=== PATIENT | male | born 1960 | race Caucasian/White ===

== ENCOUNTER 2018-10-23 17:33 | Emergency (ER) | payer OTHER ==
[2018-10-23] MEDS ORDERED: HYDROCODONE/APAP 10/325 TAB ONE (18:26)
[2018-10-23] MEDS ORDERED: DIAZEPAM 5 MG TABLET ONE (18:26)
--- NOTE | 2018-10-23 19:19 | RAD REPORT ---
EXAM DESCRIPTION: RAD - Tib Fib Right - 10/23/2018 6:22 pm CLINICAL HISTORY: Trauma, right leg pain COMPARISON: None. FINDINGS: No fracture is identified. There is no dislocation or periosteal reaction noted. No acute or suspicious bony finding. No foreign body or other soft tissue abnormality. IMPRESSION: Negative right tibia & fibula examination.
--- NOTE | 2018-10-23 19:20 | RAD REPORT ---
EXAM DESCRIPTION: US - Extremity Venous Uni Ltd - 10/23/2018 6:56 pm CLINICAL HISTORY: Right leg pain and swelling COMPARISON: None. TECHNIQUE: Real-time sonographic evaluation of the right lower extremity deep venous systems was per formed. FINDINGS: Normal compressibility, flow augmentation, phasic flow and spontaneous flow are identified in the right lower extremity common femoral, superficial femoral, popliteal and posterior tibial vei ns. No intraluminal filling defects seen. IMPRESSION: No DVT in the right lower extremity.
--- NOTE | 2018-10-23 19:59 | ER ---
[facility] Name: Willis Alejandro Age: 58 yrs Sex: Male : 1960 Arrival Date: 10/23/2018 Time: 17:35 Bed 27 Private MD: Diagnosis: Muscle Strain Presentation: 10/23 17:36 Presenting complaint: Patient states: i was pushing a boat and something on my R calf hj popped, happened 30 mins ago, it looks swollen now;. Transition of care: patient was not received from another setting of care. Onset of symptoms was October 23, 2018. Risk Assessment: Do you want to hurt yourself or someone else? Patient reports no desire to harm self or others. Initial Sepsis Screen: Does the patient meet any 2 criteria? No. Patient's initial sepsis screen is negative. Does the patient have a suspected source of infection? No. Patient's initial sepsis screen is negative. Care prior to arrival: None. 17:36 Method Of Arrival: Ambulatory 17:36 Acuity: RAMONA 4 hj Historical: - Allergies: 17:38 No Known Allergies; hj - PMHx: 17:38 Diabetes - NIDDM; Hyperlipidemia; hj - PSHx: 17:38 abdominal; hj - Immunization history:: Flu vaccine status is unknown. - Social history:: Smoking status: unknown. - Ebola Screening: : No symptoms or risks identified at this time. Screenin:01 Abuse screen: Denies threats or abuse. Denies injuries from another. Nutritional mg2 screening: No deficits noted. On. Tuberculosis screening: No symptoms or risk factors identified. Fall Risk Gait- Weak (10 pts.). Assessment: 17:59 General: Appears in no apparent distress. comfortable, Behavior is calm, cooperative. mg2 Pain: Complains of pain in right leg Pain does not radiate. Pain currently is 8 out of 10 on a pain scale. Neuro: Level of Consciousness is awake, alert, obeys commands, Oriented to person, place, time, situation. Cardiovascular: Capillary refill < 3 seconds Patient's skin is warm and dry. Respiratory: Airway is patent Respiratory effort is even, unlabored, Respiratory pattern is regular, symmetrical. GI: No signs and/or symptoms were reported involving the gastrointestinal system. : No signs and/or symptoms were reported regarding the genitourinary system. EENT: No signs and/or symptoms were reported regarding the EENT system. Derm: Skin is intact, is healthy with good turgor, Skin is pink, warm \T\ dry. normal. Musculoskeletal: Circulation, motion, and sensation intact. Capillary refill < 3 seconds, Reports pain in right leg since this afternoon. 20:10 Reassessment: splint checked by TURNER Colón before patient's discharge. mg2 Vital Signs: 17:38 BP 142 / 91; Pulse 66; Resp 18; Temp 97.7(TE); Pulse Ox 98% on R/A; Weight 112.49 kg; hj Height 6 ft. 1 in. (185.42 cm); Pain 8/10; 19:25 BP 119 / 80; Pulse 85; Resp 18; Pulse Ox 100% on R/A; Pain 2/10; mg2 17:38 Body Mass Index 32.72 (112.49 kg, 185.42 cm) ED Course: 17:35 Patient arrived in ED. hj 17:37 Triage completed. hj 17:38 Arm band placed on right wrist. 17:39 Bertrand Fox NP is PHCP. pm1 17:39 Van Castro MD is Attending Physician. pm1 17:39 PHCP role handed off by Bertrand Fox NP [facility] 17:39 Eldon Ball PA is PHCP. [facility] 17:39 Emile Doe, MEDINA is Primary Nurse. mg2 18:02 Patient has correct armband on for positive identification. Pulse ox on. NIBP on. Door mg2 closed. Warm blanket given. Ice pack to injury. 18:02 No provider procedures requiring assistance completed. Patient did not have IV access mg2 during this emergency room visit. 18:19 X-ray completed. Portable x-ray completed in exam room. Patient tolerated procedure ml well. 18:20 Tib Fib Right XRAY In Process Unspecified. EDMS 18:55 Ultrasound completed. Patient tolerated well. sg3 18:55 US Extremity Venous Unilateral Ltd In Process Unspecified. EDMS 19:57 Bharath Gallegos MD is Referral Physician. jmm 19:58 Crutch training done. Orthoglass splint: Posterior short lleg splint applied on right mg2 leg. applied by KELBY Shepard. Administered Medications: 18:16 Drug: Valium 5 mg Route: PO; mg2 19:09 Follow up: Response: No adverse reaction; Marked relief of symptoms mg2 18:16 Drug: [place] 10 mg-325 mg 1 tabs Route: PO; mg2 19:09 Follow up: Response: No adverse reaction; Marked relief of symptoms mg2 Outcome: 19:59 Discharge ordered by MD. wilkerson 20:11 Discharged to home ambulatory, with crutches, with family. mg2 20:11 Condition: good 20:11 Discharge instructions given to patient, family, Instructed on discharge instructions, follow up and referral plans. medication usage, Demonstrated understanding of instructions, follow-up care, medications, crutch walking, splint care, Prescriptions given X 1. 20:11 Patient left the ED. mg2 Signatures: Dispatcher [employer] EDMS Eldon Ball PA PA jmm Lopez, Melissa ml Joaquin, Henry, RN RN hj Bertrand Fox NP [employer] pm1 Kourtney Harvey sg3 Emile Doe RN RN mg2 Corrections: (The following items were deleted from the chart) 17:40 17:38 Pulse 66bpm; Resp 18bpm; Pulse Ox 98% RA; Temp 97.7F Temporal; 112.49 kg; Height hj 6 ft. 1 in.; BMI: 32.7; Pain 8/10; hj
--- NOTE | 2018-10-23 19:59 | EDPHYS ---
Physician Documentation [facility] Name: Willis Alejandro Age: 58 yrs Sex: Male : 1960 Arrival Date: 10/23/2018 Time: 17:35 Bed 27 Private MD: ED Physician Van Castro HPI: 10/23 17:56 This 58 yrs old Male presents to ER via Ambulatory with complaints of Leg jmm Pain. 17:56 The patient presents with an injury, pain. Onset: The symptoms/episode began/occurred jmm acutely. This is a 58 year old male with a history of DM, HLP that presents to the ED with complaints of acute onset of pain to his right calf. Patient states as he was pushing his boat, he felt a pop. Pain is localized to the right medial calf. Patient denies other injury. . Historical: - Allergies: 17:38 No Known Allergies; hj - PMHx: 17:38 Diabetes - NIDDM; Hyperlipidemia; hj - PSHx: 17:38 abdominal; hj - Immunization history:: Flu vaccine status is unknown. - Social history:: Smoking status: unknown. - Ebola Screening: : No symptoms or risks identified at this time. ROS: 17:56 Constitutional: Negative for fever, chills, and weight loss, Cardiovascular: Negative jmm for chest pain, palpitations, and edema, Respiratory: Negative for shortness of breath, cough, wheezing, and pleuritic chest pain. 17:56 MS/extremity: Positive for injury or acute deformity, pain. 17:56 All other systems are negative. Exam: 17:56 Head/Face: atraumatic. Eyes: EOMI, no conjunctival erythema appreciated ENT: Moist jmm Mucus Membranes Neck: Trachea midline, Supple Chest/axilla: Normal chest wall appearance and motion. Cardiovascular: Regular rate and rhythm. No edema appreciated Respiratory: Normal respirations, no respiratory distress appreciated Abdomen/GI: Non distended, soft Back: Normal ROM Skin: General appearance color normal 17:56 Constitutional: The patient appears alert, awake, uncomfortable. 17:56 Musculoskeletal/extremity: right calf is tender to palpation at the medial side, no obvious deformity appreciated. No palpable deformity of the Achilles tendon is appreciated. Patient has pain on dorsiflexion. Patient has no difficulty with plantarflexion. compartments are soft, NVI. 17:56 Skin: Appearance: Color: normal in color. 17:56 Neuro: Orientation: is normal, Mentation: is normal, Memory: is normal. 17:56 Psych: Behavior/mood is pleasant, cooperative. Vital Signs: 17:38 BP 142 / 91; Pulse 66; Resp 18; Temp 97.7(TE); Pulse Ox 98% on R/A; Weight 112.49 kg; hj Height 6 ft. 1 in. (185.42 cm); Pain 8/10; 19:25 BP 119 / 80; Pulse 85; Resp 18; Pulse Ox 100% on R/A; Pain 2/10; mg2 17:38 Body Mass Index 32.72 (112.49 kg, 185.42 cm) Procedures: 17:56 Splinting: Splint applied to left leg using posterior in plantarflexion. applied by [facility] tech. Examined by me, post splint application: neurovascular intact, 2+ distal pulses palpable, Patient tolerated well. MDM: 17:56 Patient medically screened. [facility] 19:27 Data reviewed: vital signs, nurses notes, lab test result(s), radiologic studies, plain [facility] films. Counseling: I had a detailed discussion with the patient and/or guardian regarding: the historical points, exam findings, and any diagnostic results supporting the discharge/admit diagnosis, the need for outpatient follow up, to return to the emergency department if symptoms worsen or persist or if there are any questions or concerns that arise at home. 19:27 ED course: Symptoms appear consistent with muscle tear. Due to possibility of achilles jmm tendon involvement, will splint with dorsiflexion. Patient is advised to follow up with ortho in 2 to 3 days and is otherwise given strict return precautions. patient understood and agrees with the plan of care. . 10/23 17:56 Order name: Tib Fib Right XRAY; Complete Time: 19:27 [facility] 10/23 17:56 Order name: US Extremity Venous Unilateral Ltd; Complete Time: : [facility] 10/23 19:40 Order name: Posterior Leg Splint; Complete Time: 19:57 [facility] 10/23 20:10 Order name: Crutches; Complete Time: 20:10 mg2 Administered Medications: 18:16 Drug: Valium 5 mg Route: PO; mg2 19:09 Follow up: Response: No adverse reaction; Marked relief of symptoms mg2 18:16 Drug: [place] 10 mg-325 mg 1 tabs Route: PO; mg2 19:09 Follow up: Response: No adverse reaction; Marked relief of symptoms mg2 Disposition: 10/24 10:28 Co-signature as Attending Physician, Van Castro MD I agree with the assessment and kdr plan of care. Disposition: 10/23/18 19:59 Discharged to Home. Impression: Muscle Strain. - Condition is Stable. - Discharge Instructions: Partial (Incomplete) Achilles Tendon Rupture, Muscle Strain. - Prescriptions for Ultracet 37.5- 325 mg Oral Tablet - take 1 tablet by ORAL route every 6 hours - for up to 5 days; do not exceed 8 tablets per day.; 12 tablet. - Medication Reconciliation Form, Thank You Letter, Antibiotic Education, Prescription Opioid Use form. - Follow up: Bharath Gallegos MD; When: 2 - 3 days; Reason: If symptoms return, Recheck today's complaints, Re-evaluation by your physician. Signatures: Dispatcher [employer] EDMS Van Castro MD MD kdr Mickail, Joel, PA PA m Tony Abrams RN RN Emile Doe RN RN mg2 Corrections: (The following items were deleted from the chart) 10/23 20:11 19:59 10/23/2018 19:59 Discharged to Home. Impression: Muscle Strain. Condition is mg2 Stable. Forms are Medication Reconciliation Form, Thank You Letter, Antibiotic Education, Prescription Opioid Use. Follow up: Bharath Gallegos; When: 2 - 3 days; Reason: If symptoms return, Recheck today's complaints, Re-evaluation by your physician. [place]
== END 2018-10-23 20:11 | disposition home or self-care (01) ==
LOC: ER 17:33
DX: S86.911A Strain of unspecified muscle(s) and tendon(s) at lower leg level, right leg, initial encounter (principal); X58.XXXA Exposure to other specified factors, initial encounter; Y93.89 Activity, other specified; Y92.9 Unspecified place or not applicable; E11.9 Type 2 diabetes mellitus without complications; E78.5 Hyperlipidemia, unspecified
CPT/HCPCS: 93971; 99284